=== PATIENT | female | born 1955 | race Caucasian/White ===

== ENCOUNTER 2020-12-07 14:14 | Emergency (ER) | payer MEDICARE, BC ==
[~2020-12-07] VITALS: Ht 167.6 cm; Wt 77.0 kg
[~2020-12-07 14:14] MED LIST: AMPI500C11 PO; IBUP-812 PO
[2020-12-07] MEDS ORDERED: dexamethasone sod phosphate 10mg/ml inj IV STA (14:43)
[2020-12-07] MEDS ORDERED: normal saline 1000ML IV soln IVB ONE (14:45)
[2020-12-07] MEDS ORDERED: ketorolac trometh. 30mg/ml inj. IV ONE (14:45)
[2020-12-07] MEDS ORDERED: ALBUTEROL INHALER 1 PUFF/90 MCG INHALER IH STA (14:53)
[2020-12-07] MEDS ORDERED: acetaminophen 325mg tablet PO STA (15:20)
[2020-12-07 15:29] LABS: BASOPHILS % (AUTO) 0.2 % (0-1); EOSINOPHILS % (AUTO) 0 % (0-6); HEMATOCRIT 39.2 % (35.0-45.0); HEMOGLOBIN 12.8 g/dl (12.0-16.0); LYMPHOCYTES # (AUTO) 0.7 X10'3 (1.1-4.8); LYMPHOCYTES % (AUTO) 9.4 % (21-51); MEAN CORPUSCULAR HEMOGLOBIN 27.3 PG (27.0-31.0); MEAN CORPUSCULAR HGB CONC 32.7 g/dL (33.0-36.5); MEAN CORPUSCULAR VOLUME 83.4 FL (78-98); MEAN PLATELET VOLUME 8.2 FL (7.4-10.4); MONOCYTES # (AUTO) 0.5 X10'3 (0-0.9); NEUTROPHILS # (AUTO) 6.1 X10'3 (1.8-7.7); NEUTROPHILS % (AUTO) 83.4 % (42-75); PLATELET COUNT 168 X10'3 (140-440); RED CELL DISTRIBUTION WIDTH 14.4 % (11.5-14.5); WHITE BLOOD COUNT 7.4 X10'3 (4.5-11.0)
[2020-12-07 15:37] LABS: D-DIMER 0.42 MG/L FEU (0-0.50)
[2020-12-07] MEDS ORDERED: CASIRIVIMAB/IMDEVIMAB inject. 10 ML in normal saline 100ml IV soln 100 ML IV ONE (15:45)
[2020-12-07] MEDS ORDERED: ALBU8.5H17 IH (15:50)
[2020-12-07] MEDS ORDERED: DEXA6TAB6 PO (15:50)
[2020-12-07 16:20] VITALS: BP 107/65
== END 2020-12-07 18:09 | disposition home or self-care (01) ==
LOC: ER 14:14
DX: U07.1 COVID-19 (principal); R06.82 Tachypnea, not elsewhere classified; R09.89 Other specified symptoms and signs involving the circulatory and respiratory systems; R43.8 Other disturbances of smell and taste; R05 Cough; R50.9 Fever, unspecified; F17.210 Nicotine dependence, cigarettes, uncomplicated; Z72.89 Other problems related to lifestyle; Z79.2 Long term (current) use of antibiotics; Z79.899 Other long term (current) drug therapy
CPT/HCPCS: 36415; 85025; 85379; 96374; 96375; 99284; J1100; J1885; M0243; Q0244

== ENCOUNTER → 2024-08-18 | Outpatient (CLI) | payer MEDICARE, BC ==
[~2024-08-18] MED LIST changes: +ALBU8.5H17 IH; +DEXA6TAB6 PO
--- NOTE | 2024-08-18 11:07 | RADIOLOGY REPORT ---
INDICATION: URINARY TRACT INFECTION TECHNIQUE: Multiple real-time sonographic images of the kidneys and bladder were obtained. COMPARISON: None FINDINGS: RIGHT kidney measures 9.6 cm in length. Mild right renal pelvic fullness. LEFT kidney measures 9.8 cm in length. No hydronephrosis. No large intraluminal masses are seen in the bladder. Post void residual of 47 cc. IMPRESSION: Mild right renal pelvic fullness. Post void residual of 47 cc.
== END | disposition home or self-care (01) ==
LOC: RAD 09:28
PROVIDERS: ATTEND Nurse Practitioner Family
DX: N39.0 Urinary tract infection, site not specified (principal)
CPT/HCPCS: 76770